=== PATIENT | female | born 1975 | race Caucasian/White ===

== ENCOUNTER 2020-03-10 11:55 | Emergency (ER) | payer MEDICAID, OTHER ==
[~2020-03-10] VITALS: Ht 175.3 cm; Wt 79.5 kg
[~2020-03-10 11:55] MED LIST: NOCURR
[2020-03-10] MEDS ORDERED: TRAM50TA4 PO (12:03)
[2020-03-10] MEDS ORDERED: KETOROLAC TROMETHAMINE 30 MG/ML VIAL IM ONE (13:30)
[2020-03-10] MEDS ORDERED: ACETAMINOPHEN 500 MG TABLET PO ONE (13:30)
[2020-03-10] MEDS ORDERED: LIDOCAINE 5% TRANSDERMAL PATCH TD ONE (13:30)
[2020-03-10] MEDS ORDERED: DIAZEPAM 5 MG TABLET PO ONE (14:00)
[2020-03-10 15:48] LABS: BASOPHILS % (AUTO) 0.9 % (0.0-2.0); EOSINOPHILS % (AUTO) 1.2 % (1.0-6.0); HEMATOCRIT 44.6 % (36-46); HEMOGLOBIN 15.2 g/dL (12.0-16.0); LYMPHOCYTES % (AUTO) 27.3 % (22.0-44.0); MEAN CORPUSCULAR HEMOGLOBIN 32.1 pg (26.0-34.0); MEAN CORPUSCULAR HGB CONC 34.2 G/dL (31.0-37.0); MEAN CORPUSCULAR VOLUME 94 fL (80-100); MONOCYTES # (AUTO) 0.6 K/uL (0.1-1.0); MONOCYTES % (AUTO) 8.4 % (2.0-9.0); NEUTROPHILS # (AUTO) 4.7 K/uL (1.8-7.7); NEUTROPHILS % (AUTO) 62.2 % (40.0-70.0); PLATELET COUNT (AUTO) 260 K/uL (150-450); RED BLOOD CELL COUNT(AUTO) 4.74 MIL/uL (4.00-5.20); RED CELL DISTRIBUTION WIDTH 13.8 % (11.5-14.5)
[2020-03-10 15:57] LABS: ANION GAP 5 mmol/L (8-16); CALCIUM, TOTAL 8.9 mg/dL (8.8-10.5); CARBON DIOXIDE 29 mmol/L (22-29); CHLORIDE 103 mmol/L (98-107); CREATININE 0.88 mg/dL (0.60-1.30); GLOMERULAR FILTR. RATE CALC > 60 mL/min (>60); GLUCOSE,RANDOM 89 mg/dL (70-110); POTASSIUM 4.1 mmol/L (3.5-5.1); SODIUM SERUM 137 mmol/L (136-145); UREA NITROGEN, BLOOD 11 mg/dL (7-18)
[2020-03-10 16:09] LABS: ALANINE AMINOTRANSFERASE 24 U/L (12-78); ALBUMIN 3.6 g/dL (3.4-5.0); ALKALINE PHOSPHATASE 84 U/L (46-116); ASPARTATE AMINOTRANSFERASE 14 U/L (15-37); BILIRUBIN,TOTAL 0.4 mg/dL (0.1-1.0); CREATINE KINASE, TOTAL ONLY 54 U/L (26-192); HCG,QUANTITATIVE 1 mIU/mL (0-6); TOTAL PROTEIN, SERUM 7.3 g/dL (6.4-8.2)
[2020-03-10 18:38] VITALS: BP 110/77
== END 2020-03-10 19:02 | disposition home or self-care (01) ==
LOC: EMS 12:07
DX: M79.602 Pain in left arm (principal); R07.9 Chest pain, unspecified; M50.20 Other cervical disc displacement, unspecified cervical region; Z88.5 Allergy status to narcotic agent
CPT/HCPCS: 36415; 70450; 72125; 73080; 80053; 82550; 84484; 84702; 85025; 93005; 93931; 93971; 96372; 99285; J1885

== ENCOUNTER 2022-03-26 13:06 | Emergency (ER) | payer OTHER ==
[~2022-03-26] VITALS: Ht 167.6 cm; Wt 77.3 kg
[~2022-03-26 13:06] MED LIST changes: -NOCURR; +TRAM-559 PO
[2022-03-26] MEDS ORDERED: GuaiFENesin/CODEINE [SUGAR FREE] 200-20MG/10 ML SYRUP UDCUP PO ONE (13:15)
[2022-03-26] MEDS ORDERED: ACETAMINOPHEN 500 MG TABLET PO ONE (13:15)
[2022-03-26] MEDS ORDERED: IBUPROFEN 400 MG TABLET PO ONE (13:15)
[2022-03-26 13:24] LABS: COVID AG,FIA SOURCE NASAL SWAB
[2022-03-26 14:20] LABS: INFLUENZA TYPE A NEGATIVE FOR TYPE A (NEGATIVE); INFLUENZA TYPE B NEGATIVE FOR TYPE B (NEGATIVE)
[2022-03-26 14:47] VITALS: BP 122/81
[2022-03-26] MEDS ORDERED: BENZ-70 PO (14:58)
[2022-03-26] MEDS ORDERED: IBUP-1554 PO (14:58)
[2022-03-26] MEDS ORDERED: ALBU8HFA IH (14:58)
[2022-03-26] MEDS ORDERED: GUAFACSF5L PO ×2 (14:58→15:46)
== END 2022-03-26 15:49 | disposition home or self-care (01) ==
LOC: EMS 13:10
DX: R07.89 Other chest pain (principal); Z20.822 Contact with and (suspected) exposure to COVID-19; J06.9 Acute upper respiratory infection, unspecified; J20.9 Acute bronchitis, unspecified; R68.83 Chills (without fever); Z88.9 Allergy status to unspecified drugs, medicaments and biological substances
CPT/HCPCS: 87804; 99283; 99284

== ENCOUNTER 2022-11-25 14:49 | Emergency (ER) | payer OTHER ==
[~2022-11-25] VITALS: Ht 167.6 cm; Wt 82.7 kg
[~2022-11-25 14:49] MED LIST changes: +ALBU18HF12 IH; +BENZ-227 PO; +GUAFACSF5L PO; +IBUP-1554 PO
[2022-11-25 15:13] VITALS: BP 117/74; PULSE 84; RESP 20; TEMP 98.1
[2022-11-25] MEDS ORDERED: KETOROLAC TROMETHAMINE 30 MG/ML VIAL IM ONE (17:30)
[2022-11-25] MEDS ORDERED: LIDOCAINE 5% TRANSDERMAL PATCH TD ONE (17:30)
[2022-11-25] MEDS: CYCLOBENZAPRINE HCL 10 MG TABLET PO ONE ×2 (17:59→18:15)
[2022-11-25] MEDS ORDERED: IBUP-1492 PO (19:50)
[2022-11-25] MEDS ORDERED: LIDO700A15 TP (19:50)
[2022-11-25] MEDS ORDERED: CYCL-448 PO (19:50)
== END 2022-11-25 20:09 | disposition home or self-care (01) ==
LOC: EMS 15:16
DX: M54.50 Low back pain, unspecified (principal); G89.29 Other chronic pain; Z88.5 Allergy status to narcotic agent; Z88.8 Allergy status to other drugs, medicaments and biological substances
CPT/HCPCS: 99283; 96372; J1885

== ENCOUNTER 2023-03-02 16:12 | Emergency (ER) | payer OTHER ==
[~2023-03-02] VITALS: Ht 162.6 cm; Wt 81.8 kg
[~2023-03-02 16:12] MED LIST changes: +CYCL-448 PO; +IBUP-1492 PO; +LIDO700A15 TP
[2023-03-02 16:15] VITALS: BP 143/97; PULSE 104; RESP 18; TEMP 97.9
[2023-03-02] MEDS ORDERED: IBUPROFEN 800 MG TABLET PO ONE (17:30)
== END 2023-03-02 19:49 | disposition home or self-care (01) ==
LOC: EMS 16:13
DX: S80.02XA Contusion of left knee, initial encounter (principal); Z98.890 Other specified postprocedural states; Z88.5 Allergy status to narcotic agent; Z88.8 Allergy status to other drugs, medicaments and biological substances; W19.XXXA Unspecified fall, initial encounter; Y93.89 Activity, other specified; Y92.89 Other specified places as the place of occurrence of the external cause; Y99.8 Other external cause status
CPT/HCPCS: 29505; 99283

== ENCOUNTER 2023-08-03 11:40 | Emergency (ER) | payer OTHER ==
[~2023-08-03] VITALS: Ht 167.6 cm; Wt 72.7 kg
[2023-08-03 11:42] VITALS: TEMP 98.5
[2023-08-03 14:40] LABS: BASOPHILS % (AUTO) 0.8 % (0.0-2.0); EOSINOPHILS % (AUTO) 0.6 % (1.0-6.0); HEMATOCRIT 45.7 % (36-46); HEMOGLOBIN 15.4 g/dL (12.0-16.0); LYMPHOCYTES # (AUTO) 2.1 K/uL (1.0-4.8); LYMPHOCYTES % (AUTO) 26.5 % (22.0-44.0); MEAN CORPUSCULAR HEMOGLOBIN 31.5 pg (26.0-34.0); MEAN CORPUSCULAR HGB CONC 33.7 G/dL (31.0-37.0); MEAN CORPUSCULAR VOLUME 93 fL (80-100); MONOCYTES # (AUTO) 0.5 K/uL (0.1-1.0); MONOCYTES % (AUTO) 6.6 % (2.0-9.0); NEUTROPHILS # (AUTO) 5.2 K/uL (1.8-7.7); NEUTROPHILS % (AUTO) 65.5 % (40.0-70.0); PLATELET COUNT (AUTO) 288 K/uL (150-450); RED CELL DISTRIBUTION WIDTH 13.6 % (11.5-14.5); WHITE BLOOD COUNT (AUTO) 7.9 K/uL (4.5-11.0)
[2023-08-03] MEDS: SODIUM CHLORIDE 0.9% 1,000 ML IV ONE (14:42)
[2023-08-03 14:48] LABS: ANION GAP 5 mmol/L (8-16); CALCIUM, TOTAL 9.2 mg/dL (8.8-10.5); CARBON DIOXIDE 31 mmol/L (22-29); CHLORIDE 103 mmol/L (98-107); CREATININE 0.71 mg/dL (0.60-1.30); GLOMERULAR FILTR. RATE CALC > 60 mL/min (>60); GLUCOSE,RANDOM 108 mg/dL (70-110); POTASSIUM 4.2 mmol/L (3.5-5.1); SODIUM SERUM 139 mmol/L (136-145); UREA NITROGEN, BLOOD 11 mg/dL (7-18)
[2023-08-03 14:56] LABS: ALANINE AMINOTRANSFERASE 28 U/L (12-78); ALBUMIN 3.7 g/dL (3.4-5.0); ALKALINE PHOSPHATASE 107 U/L (46-116); ASPARTATE AMINOTRANSFERASE 20 U/L (15-37); BILIRUBIN,TOTAL 0.5 mg/dL (0.1-1.0); TOTAL PROTEIN, SERUM 8.5 g/dL (6.4-8.2)
[2023-08-03] MEDS: KETOROLAC TROMETHAMINE 30 MG/ML VIAL IVP ONE (15:50)
[2023-08-03] MEDS: DiphenhydrAMINE HCL 50 MG/ML VIAL IVP ONE (15:50)
[2023-08-03] MEDS: METOCLOPRAMIDE HCL 5 MG/ML 2 ML VIAL IVP ONE (15:50)
[2023-08-03 18:11] VITALS: BP 124/76; PULSE 105; RESP 16
== END 2023-08-03 18:26 | disposition home or self-care (01) ==
LOC: EMS 11:40
DX: R51.9 Headache, unspecified (principal); Z88.5 Allergy status to narcotic agent
CPT/HCPCS: 99285; 96374; 70450; 96375; 96361; 80053; 84703; 85025; 36415; J1200; J1885; J2765; J7030

== ENCOUNTER 2024-02-06 21:29 | Emergency (ER) | payer OTHER ==
[~2024-02-06] VITALS: Ht 170.2 cm; Wt 84.1 kg
[~2024-02-06 21:29] MED LIST changes: -TRAM-559 PO; +TRAM50TA5 PO
[2024-02-06 21:52] VITALS: TEMP 99.4
[2024-02-06 22:26] LABS: BASOPHILS % (AUTO) 0.7 % (0.0-2.0); EOSINOPHILS % (AUTO) 1.9 % (1.0-6.0); HEMATOCRIT 46.6 % (36-46); HEMOGLOBIN 15.4 g/dL (12.0-16.0); LYMPHOCYTES # (AUTO) 3.5 K/uL (1.0-4.8); LYMPHOCYTES % (AUTO) 39.4 % (22.0-44.0); MEAN CORPUSCULAR HEMOGLOBIN 31.3 pg (26.0-34.0); MEAN CORPUSCULAR VOLUME 95 fL (80-100); MONOCYTES # (AUTO) 0.9 K/uL (0.1-1.0); MONOCYTES % (AUTO) 10.5 % (2.0-9.0); NEUTROPHILS # (AUTO) 4.3 K/uL (1.8-7.7); NEUTROPHILS % (AUTO) 47.5 % (40.0-70.0); PLATELET COUNT (AUTO) 238 K/uL (150-450); RED BLOOD CELL COUNT(AUTO) 4.92 MIL/uL (4.00-5.20); RED CELL DISTRIBUTION WIDTH 13.4 % (11.5-14.5)
[2024-02-06 22:29] LABS: ANION GAP 7 mmol/L (8-16); CALCIUM, TOTAL 9.2 mg/dL (8.8-10.5); CARBON DIOXIDE 32 mmol/L (22-29); CHLORIDE 103 mmol/L (98-107); CREATININE 0.87 mg/dL (0.60-1.30); GLOMERULAR FILTR. RATE CALC > 60 mL/min (>60); GLUCOSE,RANDOM 101 mg/dL (70-110); POTASSIUM 4.1 mmol/L (3.5-5.1); SODIUM SERUM 142 mmol/L (136-145); UREA NITROGEN, BLOOD 17 mg/dL (7-18)
[2024-02-06 22:44] LABS: TROPONIN I-HIGH SENSITIVITY Less Than 4 ng/L (<51)
[2024-02-06 22:54] LABS: B-TYPE NATRIURETIC PEPTIDE 7 pg/mL (0-100)
[2024-02-06 23:09] LABS: INFLUENZA A-RTPCR,COMBO NEGATIVE (NEGATIVE); INFLUENZA B-RTPCR,COMBO NEGATIVE (NEGATIVE); RESPIRATORY SYNCYTIAL VRS-PCR NEGATIVE (NEGATIVE); SARS COVID19 RTPCR, COMBO NEGATIVE (NEGATIVE)
[2024-02-07] MEDS: GuaiFENesin [SUGAR-FREE] 200 MG/10 ML SOLUTION UDCUP PO ONE (00:50)
[2024-02-07] MEDS: BENZONATATE 100 MG CAPSULE PO ONE (00:50)
[2024-02-07] MEDS: ACETAMINOPHEN/CODEINE 120-12 MG/5 ML ORAL.SYG PO ONE (00:51)
[2024-02-07] MEDS ORDERED: GUAI120L62 PO (01:30)
[2024-02-07 01:45] VITALS: BP 116/87; PULSE 99; RESP 20; O2SAT 100
== END 2024-02-07 01:46 | disposition home or self-care (01) ==
LOC: EMS 21:29
DX: J20.9 Acute bronchitis, unspecified (principal); R07.89 Other chest pain; N39.3 Stress incontinence (female) (male); Z88.5 Allergy status to narcotic agent; Z20.822 Contact with and (suspected) exposure to COVID-19
CPT/HCPCS: 99285; 0241U; 71045; 80048; 83880; 84484; 85025; 36415; 93005